=== PATIENT | male | born 1985 | race Caucasian/White ===

== ENCOUNTER 2025-07-02 11:44 | Outpatient (CLI) | payer BC | END 2025-07-02 11:45 | disposition home or self-care (01) | LOC: CSHMAMMO 11:44 → EDSEX 11:44 → CSHMAMMO 11:45 | PROVIDERS: ATTEND Physician Assistant | DX: Z12.31 Encounter for screening mammogram for malignant neoplasm of breast (principal) | CPT/HCPCS: 77063; 77067 ==